=== PATIENT | male | born 1935 | race Caucasian/White ===

== ENCOUNTER 2023-06-13 18:47 | Emergency (ER) | payer MEDICARE, BC ==
[2023-06-13 19:10] LABS: BASOPHILS ABSOLUTE AUTO 0.1 x10^3/uL (0.0-0.2); BASOPHILS PERCENT AUTO 0.8 % (0.2-1.2); EOSINOPHILS ABSOLUTE AUTO 0.2 x10^3/uL (0.0-0.5); EOSINOPHILS PERCENT AUTO 1.6 % (0.0-4.0); HEMATOCRIT 41.6 % (40.0-52.0); HEMOGLOBIN 13.9 g/dL (14.0-18.0); IMMATURE GRAN ABSOLUTE AUTO 0.07 x10^3/uL (0.00-0.07); LYMPHOCYTES ABSOLUTE AUTO 1.9 x10^3/uL (1.0-4.8); LYMPHOCYTES PERCENT AUTO 17.8 % (25.0-50.0); MEAN CORPUSCULAR HEMOGLOBIN 29.8 pg (26.0-32.0); MEAN CORPUSCULAR HGB CONC 33.4 g/dL (32.0-36.0); MEAN CORPUSCULAR VOLUME 89.1 fL (78.0-93.0); MONOCYTES ABSOLUTE AUTO 0.6 x10^3/uL (0.0-0.8); MONOCYTES PERCENT AUTO 5.7 % (2.0-11.0); NEUTROPHILS ABSOLUTE AUTO 7.7 x10^3/uL (1.8-7.7); NEUTROPHILS PERCENT AUTO 73.4 % (50.0-80.0); PLATELET COUNT,PLT 300 x10^3/uL (130-400); RED BLOOD CELL COUNT 4.67 x10^6/uL (4.5-6.0); WHITE BLOOD CELL COUNT,WBC 10.4 x10^3/uL (4.0-10.0)
[2023-06-13 19:25] LABS: PROTHROMBIN TIME 10.6 SEC (9.5-12.2); PTT,PARTIAL THROMBOPLSTIN TIME 27.9 SEC (23.6-33.6)
[2023-06-13 19:26] LABS: A/G RATIO 0.75; ALANINE AMINOTRANSFERASE,ALT 19 U/L (16-63); ALBUMIN 3.3 g/dL (3.4-5.0); ALKALINE PHOSPHATASE 127 U/L (46-116); ASPARTATE AMNIOTRANSFERASE,AST 14 U/L (15-37); BILIRUBIN TOTAL 0.3 mg/dL (0.2-1.0); BLOOD UREA NITROGEN,BUN 19 mg/dL (7-18); CALCIUM 9.5 mg/dL (8.5-10.1); CARBON DIOXIDE,CO2 24 mmol/L (21-32); CHLORIDE,CL 103 mmol/L (98-107); CREATININE 1.8 mg/dL (0.70-1.30); GLUCOSE RANDOM 133 mg/dL (70-99); PROTEIN TOTAL,TP 7.7 g/dL (6.4-8.2); SODIUM,NA 138 mmol/L (136-145)
[2023-06-13 19:27] LABS: ESTIMATED GFR 36 mL/min (>=60)
== END 2023-06-13 21:18 | disposition home or self-care (01) ==
LOC: VM.ED 18:47 → MERGE 18:47 → VM.ED 21:18
DX: S06.6X0A Traumatic subarachnoid hemorrhage without loss of consciousness, initial encounter (principal); I10 Essential (primary) hypertension; Z87.891 Personal history of nicotine dependence; W18.30XA Fall on same level, unspecified, initial encounter
CPT/HCPCS: 70450; 70486; 71045; 72170; 73110-RT; 80053; 85025; 85610; 85730; 99284